=== PATIENT | female | born 1965 | race Caucasian/White ===

== ENCOUNTER 2017-11-16 00:06 | Emergency (ER) | END 2017-11-16 09:15 | disposition home or self-care (01) ==

== ENCOUNTER 2017-11-18 12:55 | Emergency (ER) | END 2017-11-18 14:31 | disposition home or self-care (01) ==

== ENCOUNTER 2017-11-20 11:50 | Emergency (ER) | END 2017-11-20 15:35 | disposition home or self-care (01) ==